=== PATIENT | male | born 1955 | race Caucasian/White ===

== ENCOUNTER → 2016-06-07 | Outpatient (CLI) | payer BC ==
[~2016-06-07] MED LIST: AMLO10TA2 PO; ASPI-390 PO; CARB100C2 PO; CIPR-255 PO; LPT/20 PO; LSN20 PO; METR500T PO; ONDA4TAB10 SL; TRAM-10 PO; ZNT/150 PO
[2016-06-07 12:40] LABS: ALT/SGPT 30 U/L (12-78); AST/SGOT 15 U/L (15-37); BLOOD UREA NITROGEN 20 mg/dl (7-18); BUN/CREATININE RATIO 14.1 (10-20); CALCIUM 8.9 mg/dl (8.5-10.1); CARBON DIOXIDE 24 mmol/L (21-32); CHLORIDE 106 mmol/L (98-107); CHOLESTEROL 108 mg/dl (0-200); GLUCOSE 95 mg/dl (70-99); POTASSIUM 4.3 mmol/L (3.5-5.1); SODIUM 139 mmol/L (136-145); TRIGLYCERIDES 89 mg/dl (0-150); VERY LOW DENSITY LIPOPROT CALC 18 mg/dl
[2016-06-07 12:44] LABS: ALB/GLOB RATIO 1.2 (0.9-2); ALKALINE PHOSPHATASE 93 U/L (45-117); CHOLESTEROL/HDL RATIO 2.8; HDL CHOLESTEROL 38 mg/dl; LDL CHOLESTEROL CALCULATED 52 mg/dl
== END | disposition home or self-care (01) ==
LOC: C.LAB1850 09:36
PROVIDERS: ATTEND Family Medicine
DX: I10 Essential (primary) hypertension (principal)

== ENCOUNTER 2016-12-30 16:35 | Emergency (ER) | payer BC ==
[~2016-12-30] VITALS: Ht 177.8 cm; Wt 106.0 kg
[~2016-12-30 16:35] MED LIST changes: -CIPR-255 PO; -LPT/20 PO; -LSN20 PO; -METR500T PO; -ONDA4TAB10 SL; -TRAM-10 PO
[2016-12-30 16:48] VITALS: TEMP 37.1; Ht 177.8 cm; Wt 106.0 kg
[2016-12-30] MEDS ORDERED: MoRPHine SULFATE 4 MG/ML 1 ML CARP\\VIAL IV STA (17:04)
[2016-12-30] MEDS ORDERED: SODIUM CHLORIDE 0.9% 1000ML 1,000 ML IV STA (17:04)
[2016-12-30] MEDS ORDERED: OPTIRAY 320 IV PRN (17:15)
--- NOTE | 2016-12-30 17:22 | EMERGENCY ROOM VISIT NOTE ---
History Report prepared by Pushpa: Eyad Silva Under the Supervision of: Dr. Ruperto Dillard M.D. First contact with patient: 16:52 Chief Complaint: ABDOMINAL PAIN Stated Complaint: ABDOMINAL PAIN History of Present Illness The patient is a 61 year old white male with a past medical history of left inguinal hernia, HTN, GERD who presents to the ED with a cc of intermittent lower abdominal pain beginning yesterday. Pain primarily located around hernia. Hernia has been present for about two years. Area of hernia hurts with coughing and to touch. Current pain feels "like gas pain". Describes pain as "sharp". Rates pain as a 6/10 in severity when present. No recent trauma, travel, or antibiotic use. Negative nausea, vomiting, fevers, chills, diarrhea, urinary symptoms, testicular pain, testicular swelling. Quit smoking two years ago. Source of History: patient Onset: Yesterday Position: abdomen (lower) Symptom Intensity: 6/10 Quality: sharp Modifying Factors (Worsening): other (coughing) Associated Symptoms: No fevers, No chills, No nausea, No vomiting, No diarrhea, No urinary symptoms Note: Negative: testicular pain or swelling. Review of Systems See HPI for pertinent positives and negatives. A total of ten systems were reviewed and were otherwise negative. Past Medical & Surgical Medical Problems: (1) GERD (gastroesophageal reflux disease) Hypertension Family History Patient reports no known family medical history. Social History Smoking Status: Former Smoker Alcohol Use: none Drug Use: none Marital Status: Housing Status: lives with family Occupation Status: employed Current/Historical Medications Scheduled Amlodipine Besylate (Norvasc), 5 MG PO DAILY Atorvastatin (Atorvastatin Calcium), 20 MG PO QAM Ciprofloxacin Hcl (Cipro), 500 MG PO BID Lisinopril (Lisinopril), 20 MG PO DAILY Metronidazole (Flagyl), 500 MG PO TID Ondasetron Odt (Zofran Odt), 4 MG SL Q6H Scheduled PRN Ranitidine Hcl (Zantac), 150 MG PO DAILY PRN for Heartburn Tramadol (Ultram), 25 MG PO Q8H PRN for Pain Allergies Coded Allergies: No Known Allergies (Unverified , 12/30/16) Physical Exam Vital Signs Date Time Temp Pulse Resp B/P (MAP) Pulse Ox O2 Delivery O2 Flow Rate FiO2 12/30/16 20:02 78 18 108/63 97 Room Air 12/30/16 18:05 75 19 133/73 100 Room Air 12/30/16 17:36 83 12/30/16 17:29 81 18 114/59 98 Room Air 12/30/16 16:48 37.1 93 20 142/79 96 Room Air Physical Exam GENERAL: Awake, alert, well-appearing, NAD HENT: Normocephalic, atraumatic. EYES: Normal conjunctiva. Sclera non-icteric. NECK: Supple. No nuchal rigidity. FROM. RESPIRATORY: CTAB, no rhonchi, wheezing, crackles CARDIAC: RRR, no MRG ABDOMEN: Mild RLQ TTP. Suprapubic TTP. No LLQ TTP. Negative psoas or obturators. No bulges or masses felt. : No testicular or scrotal swelling. No bulges or masses felt with cough. MSK: No chest wall TTP, no LE edema NEURO: GCS 15, CN 2-12 intact, moves all 4s on command SKIN: No rash or jaundice noted. Medical Decision & Procedures ER Provider Diagnostic Interpretation: Radiology results as stated below per my review and radiologist interpretation: CT OF THE ABDOMEN AND PELVIS WITH CONTRAST FINDINGS: A 4 mm lingular nodule is likely benign. The liver, spleen, adrenal glands, right kidney and pancreas are normal. There is marked asymmetric left renal atrophy, likely on the basis of renal artery stenosis. Although not performed as a CTA exam, this study shows suspected severe stenosis of the proximal left renal artery due to noncalcified atherosclerotic plaque. There are suspected tiny gallstones within the gallbladder without CT evidence of acute cholecystitis. The appendix is normal. Sigmoid diverticulosis is noted with mild to moderate wall thickening and pericolonic infiltration centered on the mid sigmoid colon consistent with acute diverticulitis. There is no free air or abscess. Bilateral fat-containing inguinal hernias, left larger than right, are noted. There are no suspicious osseous lesions. There is no hydronephrosis. No abdominal or pelvic lymphadenopathy is present. There is trace fluid within the pelvis. IMPRESSION: 1. Acute sigmoid diverticulitis. No free air or abscess. 2. Marked left renal atrophy due to renal artery stenosis with suspected severe stenosis of the proximal left renal artery due to noncalcified atherosclerotic plaque. 3. Tiny gallstones within the gallbladder. 4. Bilateral fat-containing inguinal hernias, left larger than right. Electronically signed by: Alvin Howell M.D. 12/30/2016 7:15 PM CHEST ONE VIEW PORTABLE FINDINGS: The bones soft tissues and hemidiaphragms are normal. The cardiomediastinal silhouette is normal. The lungs are clear. The pulmonary vasculature is normal. IMPRESSION: Negative chest. The above report was generated using voice recognition software. It may contain grammatical, syntax or spelling errors. Electronically signed by: Loc Rey M.D. 12/30/2016 5:54 PM Laboratory Results 12/30/16 17:22 Red Blood Count 4.97, Mean Corpuscular Volume 87.9, Mean Corpuscular Hemoglobin 30.6, Mean Corpuscular Hemoglobin Concent 34.8, Mean Platelet Volume 11.0, Neutrophils (%) (Auto) 74.8, Lymphocytes (%) (Auto) 13.9, Monocytes (%) (Auto) 8.4, Eosinophils (%) (Auto) 1.9, Basophils (%) (Auto) 0.3, Neutrophils # (Auto) 8.76, Lymphocytes # (Auto) 1.63, Monocytes # (Auto) 0.98, Eosinophils # (Auto) 0.22, Basophils # (Auto) 0.04 Test 12/30/16 17:10 12/30/16 17:22 12/30/16 17:29 12/30/16 18:29 Urine Color YELLOW Urine Appearance CLEAR (CLEAR) Urine pH 6.5 (4.5-7.5) Urine Specific [place] 1.018 (1.000-1.030) Urine Protein NEG (NEG) Urine Glucose (UA) NEG (NEG) Urine Ketones NEG (NEG) Urine Occult Blood NEG (NEG) Urine Nitrite NEG (NEG) Urine Bilirubin NEG (NEG) Urine Urobilinogen NEG (NEG) Urine Leukocyte Esterase NEG (NEG) White Blood Count 11.71 K/uL (4.8-10.8) Red Blood Count 4.97 M/uL (4.7-6.1) Hemoglobin 15.2 g/dL (14.0-18.0) Hematocrit 43.7 % (42-52) Mean Corpuscular Volume 87.9 fL (80-100) Mean Corpuscular Hemoglobin 30.6 pg (25-34) Mean Corpuscular Hemoglobin Concent 34.8 g/dl (32-36) Platelet Count 223 K/uL (130-400) Mean Platelet Volume 11.0 fL (7.4-10.4) Neutrophils (%) (Auto) 74.8 % Lymphocytes (%) (Auto) 13.9 % Monocytes (%) (Auto) 8.4 % Eosinophils (%) (Auto) 1.9 % Basophils (%) (Auto) 0.3 % Neutrophils # (Auto) 8.76 K/uL (1.4-6.5) Lymphocytes # (Auto) 1.63 K/uL (1.2-3.4) Monocytes # (Auto) 0.98 K/uL (0.11-0.59) Eosinophils # (Auto) 0.22 K/uL (0-0.5) Basophils # (Auto) 0.04 K/uL (0-0.2) RDW Standard Deviation 42.6 fL (36.4-46.3) RDW Coefficient of Variation 13.4 % (11.5-14.5) Immature Granulocyte % (Auto) 0.7 % Immature Granulocyte # (Auto) 0.08 K/uL (0.00-0.02) Platelet Estimate NORMAL Total Bilirubin 0.9 mg/dl (0.2-1) Alanine Aminotransferase (ALT/SGPT) 29 U/L (12-78) Alkaline Phosphatase 100 U/L (45-117) Total Protein 7.7 gm/dl (6.4-8.2) Albumin 4.0 gm/dl (3.4-5.0) Lipase 219 U/L (73-393) Bedside Hemoglobin 16.3 g/dl (14.0-18.0) Bedside Hematocrit 48 % (42-52) Bedside Sodium 138 mEq/L (135-144) Bedside Potassium 4.6 mEq/L (3.3-5.0) Bedside Chloride 103 mEq/L (101-112) Bedside Total CO2 27 mEq/l (24-31) Anion Gap 14.0 mmol/L (16-25) Bedside Blood Urea Nitrogen 20 mg/dl (7-18) Bedside Creatinine 1.5 mg/dl (0.6-1.3) Bedside Glucose (other) 87 mg/dl (70-99) Bedside Ionized Calcium (Janice) 1.12 mmol/l (1.12-1.32) Direct Bilirubin 0.2 mg/dl (0-0.2) Aspartate Amino Transf (AST/SGOT) 13 U/L (15-37) Laboratory results reviewed by me Medications Administered Medications (Trade) Dose Ordered Sig/Alfredo Route Start Time Stop Time Status Last Admin Dose Admin Sodium Chloride 1,000 ml @ 999 mls/hr Q1H1M STAT IV 12/30/16 17:04 12/30/16 18:04 DC 12/30/16 18:02 999 MLS/HR Morphine Sulfate (MoRPHine SULFATE INJ) 4 mg NOW STAT IV 12/30/16 17:04 12/30/16 17:07 DC 12/30/16 18:03 4 MG ED Course 1653: The patient was evaluated in room A4B. A complete history and physical exam was performed. 1944: I reevaluated the patient. Discussed results and discharge instructions: he verbalized understanding and agreement. The patient is ready for discharge. Medical Decision The patient is a 61 year old white male with a past medical history of left inguinal hernia, HTN, GERD who presents to the ED with a cc of intermittent lower abdominal pain beginning yesterday. Differential diagnosis: Etiologies such as appendicitis, diverticulitis, PUD, biliary pathology, UTI, pancreatitis, obstruction, mesenteric ischemia, aortic pathology, infections, inflammatory bowel disease, renal colic, as well as others were entertained. Patient was seen and evaluated the bedside. Patient had been complaining of some left lower suprapubic dominant pain began yesterday. Patient states that worsens with increased intrathoracic pressure primarily when he sneezes or coughs. He does have some mild discomfort but is not some much pain when he walks around. Patient denies any testicular pain. Patient denies any testicular or scrotal swelling. Patient denies any hematuria or dysuria. Patient denies any recent trauma, sick contacts, recent antibiotics. Patient does have a known prior left lower quadrant or possibly inguinal hernia. No masses or bulges were palpated in the scrotum, groin, or lower abdomen with coughing. However, it is difficult to assess given the patient's body habitus. Patient did have a bowel movement this morning. Patient denies any blood in stool. Patient did have blood work, urinalysis, CT abdomen pelvis, and supportive care. Patient's blood work was fairly unremarkable. Patient did have baseline CK D with a creatinine of 1.5 compared 1. for the past. Patient' s CT the abdomen pelvis did show that he had some diverticulitis. Patient was feeling much improved upon reassessment patient was also told that he did have some left renal atrophy secondary to renal artery stenosis. Patient blood pressure 130s over 80s. Patient was told that he should follow-up with a specialist as an outpatient. Patient was told that if referral here from the emergency department doesn't work, he should obtain one through his primary care physician. Patient was given a vascular surgery referral. Patient was given strict follow-up, discharge, and return precautions. All questions were answered. Patient was deemed suitable for outpatient follow-up at this time. Patient agreed with the plan of care and was safely discharged home. Medication Reconcilliation Current Medication List: was personally reviewed by me Blood Pressure Screening Patient's blood pressure: Elevated blood pressure Blood pressure disposition: Elevated BP felt to be situational Impression Primary Impression: Abdominal pain Additional Impressions: Renal artery stenosis Diverticulitis Scribe Attestation The scribe's documentation has been prepared under my direction and personally reviewed by me in its entirety. I confirm that the note above accurately reflects all work, treatment, procedures, and medical decision making performed by me. Departure Information Dispostion Home / Self-Care Prescriptions Tramadol (Ultram) 50 Mg Tab 25 MG PO Q8H Y for Pain, #10 TAB Prov: Ruperto Dillard M.D. 12/30/16 Ondasetron Odt (ZOFRAN ODT) 4 Mg Tab 4 MG SL Q6H for Nausea, #6 TAB Prov: Ruperto Dillard M.D. 12/30/16 Metronidazole (FLAGYL) 500 Mg Tab 500 MG PO TID for 7 Days, #21 TAB Prov: Ruperto Dilalrd M.D. 12/30/16 Ciprofloxacin Hcl (CIPRO) 500 Mg Tab 500 MG PO BID, #14 TAB Prov: Ruperto Dillard M.D. 12/30/16 Referrals Kal Haines III, M.D. (PCP) Rnoy Peter M.D. Patient Instructions Diet High Fiber, Diverticulitis Dc, My [facility] Additional Instructions Please return to the emergency department if you have worsening or recurrent symptoms not amenable to at-home treatment. Please call for a follow-up appointment with her primary care physician. Please take your medications as prescribed. If you have other concerns and/or complaints please feel free to also call your primary care physician's office or return the ED for further evaluation, management, and treatment. You were found to have an elevated blood pressure today (>120 sytolic or >90 diastolic). Per medicare guidelines, you need to follow up with this blood pressure screening with your Primary Care Physician (PCP). For a new PCP call [phone]. You received narcotic or benzodiazepene medication while in the emergency room today. This is an addictive medication that may cause drowziness as well as constipation. Do not drive, operate heavy machinery, or drink alcohol under the influence of this medication. Avoid NSAIDs like motrin, advil, naproxen, ibuprofen. You may take tylenol 1000 mg every 6 hours as needed for pain. Take your medications as prescribed. If taking an antibiotic consider taking a probiotic and/or eating yogurt, but at the least, please take with food as it can cause upset stomach. You have been examined and treated today on an emergency basis only. This is not a substitute for, or an effort to provide, complete comprehensive medical care. It is impossible to recognize and treat all injuries or illnesses in a single emergency department visit. It is therefore important that you follow up closely with [facility], your PCP, and/or your specialist(s). Call as soon as possible for an appointment. Thank you for your time and consideration. I look forward to speaking with you again soon. Please don't hesitate to call us if you have any questions. Problem Qualifiers Primary Impression: Abdominal pain Abdominal location: left lower quadrant Qualified Codes: R10.32 - Left lower quadrant pain Additional Impressions: Diverticulitis Diverticulitis site: large intestine Diverticulitis bleeding: without bleeding Diverticulitis complication: without perforation or abscess Qualified Codes: K57.32 - Diverticulitis of large intestine without perforation or abscess without bleeding
[2016-12-30 17:42] LABS: ISTAT CREATININE 1.5 mg/dl (0.6-1.3); ISTAT HEMOGLOBIN 16.3 g/dl (14.0-18.0); ISTAT IONIZED CALCIUM 1.12 mmol/l (1.12-1.32)
[2016-12-30] MEDS ORDERED: LPT/20 PO (17:44)
[2016-12-30] MEDS ORDERED: LSN20 PO (17:44)
--- NOTE | 2016-12-30 17:55 | DIAGNOSTIC IMAGING REPORT ---
CHEST ONE VIEW PORTABLE CLINICAL HISTORY: ABDOMINAL PAIN/GI pain COMPARISON STUDY: No previous studies for comparison. FINDINGS: The bones soft tissues and hemidiaphragms are normal. The cardiomediastinal silhouette is normal. The lungs are clear. The pulmonary vasculature is normal. IMPRESSION: Negative chest. The above report was generated using voice recognition software. It may contain grammatical, syntax or spelling errors. Electronically signed by: Loc Rey M.D. 12/30/2016 5:54 PM Dictated Date/Time: 12/30/2016 5:53 PM
[2016-12-30 18:06] LABS: ALKALINE PHOSPHATASE 100 U/L (45-117); ALT/SGPT 29 U/L (12-78)
[2016-12-30 18:17] LABS: BASO % 0.3 %; BASO ABS # 0.04 K/uL (0-0.2); COMPLETE YES; EOS % 1.9 %; HEMATOCRIT 43.7 % (42-52); IG% 0.7 %; LYMPH % 13.9 %; LYMPH ABS # 1.63 K/uL (1.2-3.4); MEAN CELL VOLUME 87.9 fL (80-100); MEAN CORPUSCULAR HEMOGLOBIN 30.6 pg (25-34); MEAN CORPUSCULAR HGB CONC 34.8 g/dl (32-36); MONO % 8.4 %; NEUT % 74.8 %; PLATELET COUNT 223 K/uL (130-400); PLT ESTIMATE NORMAL; RED BLOOD COUNT 4.97 M/uL (4.7-6.1); WHITE BLOOD COUNT 11.71 K/uL (4.8-10.8)
[2016-12-30 19:08] LABS: URINE APPEARANCE CLEAR (CLEAR); URINE BILIRUBIN NEG (NEG); URINE COLOR YELLOW; URINE NITRITE NEG (NEG); URINE PH 6.5 (4.5-7.5); URINE SPECIFIC GRAVITY 1.018 (1.000-1.030); UROBILINOGEN NEG (NEG); ZZUR CULT IF INDIC CLEAN CATCH NO
--- NOTE | 2016-12-30 19:16 | DIAGNOSTIC IMAGING REPORT ---
CT OF THE ABDOMEN AND PELVIS WITH CONTRAST CLINICAL HISTORY: Bowel pain. Evaluate for obstruction or hernia. COMPARISON STUDY: None. TECHNIQUE: Following IV administration of 119 mL of Optiray-320, axial images of the abdomen and pelvis were obtained from the lung bases to the proximal femurs. Images were reviewed in the axial, sagittal, and coronal planes. IV contrast was administered without complication. A dose lowering technique was utilized adhering to the principles of ALARA. CT DOSE: 1105.66 mGy.cm FINDINGS: A 4 mm lingular nodule is likely benign. The liver, spleen, adrenal glands, right kidney and pancreas are normal. There is marked asymmetric left renal atrophy, likely on the basis of renal artery stenosis. Although not performed as a CTA exam, this study shows suspected severe stenosis of the proximal left renal artery due to noncalcified atherosclerotic plaque. There are suspected tiny gallstones within the gallbladder without CT evidence of acute cholecystitis. The appendix is normal. Sigmoid diverticulosis is noted with mild to moderate wall thickening and pericolonic infiltration centered on the mid sigmoid colon consistent with acute diverticulitis. There is no free air or abscess. Bilateral fat-containing inguinal hernias, left larger than right, are noted. There are no suspicious osseous lesions. There is no hydronephrosis. No abdominal or pelvic lymphadenopathy is present. There is trace fluid within the pelvis. IMPRESSION: 1. Acute sigmoid diverticulitis. No free air or abscess. 2. Marked left renal atrophy due to renal artery stenosis with suspected severe stenosis of the proximal left renal artery due to noncalcified atherosclerotic plaque. 3. Tiny gallstones within the gallbladder. 4. Bilateral fat-containing inguinal hernias, left larger than right. Electronically signed by: Alvin Howell M.D. 12/30/2016 7:15 PM Dictated Date/Time: 12/30/2016 7:08 PM
[2016-12-30 19:20] LABS: MANUAL MICROSCOPIC REQUIRED? NO; REVIEW REQ? NO
[2016-12-30] MEDS ORDERED: METR500T PO (19:44)
[2016-12-30] MEDS ORDERED: TRAM-10 PO (19:44)
[2016-12-30] MEDS ORDERED: CIPR-255 PO (19:44)
[2016-12-30] MEDS ORDERED: ONDA4TAB10 SL (19:44)
[2016-12-30 20:02] VITALS: BP 108/63; PULSE 78; O2SAT 97
== END 2016-12-30 20:14 | disposition home or self-care (01) ==
LOC: C.EDB 16:36 → C.EDA 20:14
DX: R10.32 Left lower quadrant pain (principal); I70.1 Atherosclerosis of renal artery; K57.32 Diverticulitis of large intestine without perforation or abscess without bleeding; K21.9 Gastro-esophageal reflux disease without esophagitis; Z87.891 Personal history of nicotine dependence